=== PATIENT | female | born 1995 | race Caucasian/White ===

== ENCOUNTER → 2021-05-25 | Outpatient (REF) | LOC: M LAB 15:12 | PROVIDERS: ATTEND Nurse Practitioner Adult Health | DX: Z00.00 Encounter for general adult medical examination without abnormal findings (principal) ==

== ENCOUNTER → 2021-07-12 | Outpatient (REF) | LOC: M LABSMTC 10:20 | PROVIDERS: ATTEND Family Medicine | DX: Z20.822 Contact with and (suspected) exposure to COVID-19 (principal); Z11.52 Encounter for screening for COVID-19 ==

== ENCOUNTER → 2021-07-16 | Outpatient (REF) | LOC: M LABSMTC 10:15 | PROVIDERS: ATTEND Family Medicine | DX: Z20.822 Contact with and (suspected) exposure to COVID-19 (principal) ==

== ENCOUNTER 2021-07-30 10:50 | Emergency (ER) | payer BC ==
[~2021-07-30] VITALS: Ht 167.6 cm; Wt 95.1 kg
[2021-07-30] MEDS ORDERED: diazePAM 5MG TABLET PO ONE (13:25)
[2021-07-30] MEDS ORDERED: LIDOCAINE 5% (LIDODERM) PATCH TD ONE (13:25)
[2021-07-30] MEDS ORDERED: KETOROLAC 30 MG/ML 1ML VIAL IM ONE (13:25)
[2021-07-30] MEDS ORDERED: PRED20TA PO (15:27)
[2021-07-30] MEDS ORDERED: METH-1164 PO (15:27)
[2021-07-30] MEDS ORDERED: CYCLOBENZAPRINE 5MG TABLET PO ONE (15:35)
[2021-07-30 15:39] VITALS: BP 129/90
[2021-07-30] MEDS ORDERED: **NOTE PATIENT COMMENT** MISC XX SCH (21:00)
== END 2021-07-30 15:45 | disposition home or self-care (01) ==
LOC: M ED 10:50
DX: M43.06 Spondylolysis, lumbar region (principal); I73.00 Raynaud's syndrome without gangrene; F41.9 Anxiety disorder, unspecified; Z79.899 Other long term (current) drug therapy
CPT/HCPCS: 72131; 96372; 99283; J1885

== ENCOUNTER → 2021-10-22 | Outpatient (CLI) | payer BC ==
[~2021-10-22] MED LIST: METH-1164 PO; PRED20TA PO
== END ==
LOC: M SOG 08:14
PROVIDERS: ATTEND Orthopaedic Surgery
DX: M54.50 Low back pain, unspecified (principal); M54.2 Cervicalgia

== ENCOUNTER 2022-01-28 10:57 | Emergency (ER) | payer BC ==
[~2022-01-28] VITALS: Ht 167.6 cm; Wt 96.7 kg
[2022-01-28] MEDS ORDERED: CITA40TA6 (11:06)
[2022-01-28] MEDS ORDERED: ARIP1TAB4 (11:06)
[2022-01-28] MEDS ORDERED: AMPH1TAB2 (11:06)
[2022-01-28] MEDS ORDERED: CLON1TAB8 (11:06)
[2022-01-28] MEDS ORDERED: LORA2TAB14 (11:06)
[2022-01-28] MEDS ORDERED: LORazepam 2 MG/ML VIAL IV STA ×2 (12:00→14:49)
[2022-01-28 12:15] LABS: BASO % 0.4 % (0.0-1.0); EOS # 0.1 10^3/uL (0.0-0.5); EOS % 0.8 % (0.0-3.0); HEMATOCRIT 38.3 % (36.0-47.0); HEMOGLOBIN 13.1 g/dl (12.0-15.5); LYMPH # 2.2 10^3/uL (1.5-5.0); LYMPH % 21.1 % (24.0-44.0); MEAN CORPUSCULAR HEMOGLOBIN 30.8 pg (27.0-33.0); MEAN CORPUSCULAR HGB CONC 34.2 g/dl (32.0-36.5); MEAN CORPUSCULAR VOLUME 90.1 fl (80.0-96.0); MONO # 0.8 10^3/uL (0.0-0.8); MONO % 7.5 % (2.0-8.0); NEUTROPHILS # 7.4 10^3/uL (1.5-8.5); NEUTROPHILS % 69.9 % (36.0-66.0); PLATELET COUNT, AUTOMATED 275 10^3/uL (150-450); RED BLOOD COUNT 4.25 10^6/uL (4.00-5.40); WHITE BLOOD COUNT 10.6 10^3/uL (4.0-10.0)
[2022-01-28 12:42] VITALS: BP 165/89
[2022-01-28] MEDS ORDERED: ONDA4TAB6 PO (15:14)
== END 2022-01-28 16:16 | disposition home or self-care (01) ==
LOC: M ED 10:57
DX: F41.0 Panic disorder [episodic paroxysmal anxiety] (principal); R63.8 Other symptoms and signs concerning food and fluid intake
CPT/HCPCS: 80047; 85025; 96374; 96376; 99283; J2060

== ENCOUNTER → 2022-03-08 | Outpatient (REF) ==
[~2022-03-08] MED LIST changes: +AMPH1TAB2; +ARIP1TAB4; +CITA40TA6; +CLON1TAB8; +LORA2TAB14; +ONDA4TAB6 PO
== END ==
LOC: M EMP 08:35
PROVIDERS: ATTEND Family Medicine
DX: Z20.822 Contact with and (suspected) exposure to COVID-19 (principal)

== ENCOUNTER → 2022-03-08 | Outpatient (REF) | LOC: M EMP 08:26 | PROVIDERS: ATTEND Family Medicine | DX: Z20.822 Contact with and (suspected) exposure to COVID-19 (principal) ==

== ENCOUNTER → 2022-03-22 | Outpatient (REF) | payer BC | LOC: M SFHCWAGY 17:09 | PROVIDERS: ATTEND Nurse Practitioner Family | DX: Z12.4 Encounter for screening for malignant neoplasm of cervix (principal); R87.610 Atypical squamous cells of undetermined significance on cytologic smear of cervix (ASC-US) | CPT/HCPCS: 87624; G0123 ==

== ENCOUNTER → 2022-05-06 | Outpatient (CLI) | payer OTHER | LOC: M WHC 06:54 | PROVIDERS: ATTEND Nurse Practitioner Family | DX: R10.2 Pelvic and perineal pain (principal) ==

== ENCOUNTER → 2022-05-10 | Outpatient (REF) | payer OTHER ==
[2022-05-10 17:58] LABS: BASO % 0.4 % (0.0-1.0); EOS % 0.4 % (0.0-3.0); HEMATOCRIT 40.7 % (36.0-47.0); HEMOGLOBIN 13.5 g/dl (12.0-15.5); LYMPH # 1.8 10^3/uL (1.5-5.0); LYMPH % 17.5 % (24.0-44.0); MEAN CORPUSCULAR HEMOGLOBIN 30.4 pg (27.0-33.0); MEAN CORPUSCULAR HGB CONC 33.2 g/dl (32.0-36.5); MEAN CORPUSCULAR VOLUME 91.7 fl (80.0-96.0); MONO # 0.5 10^3/uL (0.0-0.8); MONO % 5.3 % (2.0-8.0); NEUTROPHILS # 7.6 10^3/uL (1.5-8.5); NEUTROPHILS % 76.1 % (36.0-66.0); PLATELET COUNT, AUTOMATED 331 10^3/uL (150-450); RED BLOOD COUNT 4.44 10^6/uL (4.00-5.40)
[2022-05-10 18:25] LABS: ERYTHROCYTE SEDIMENTATION RATE 35 mm/hr (0-20)
[2022-05-10 18:28] LABS: URIC ACID 6.4 MG/DL (3.1-7.8)
[2022-05-10 18:30] LABS: C REACTIVE PROTEIN QUANTITATIV < 0.40 MG/DL (<1.0)
[2022-05-10 18:31] LABS: RHEUMATOID FACTOR QUANT < 3.5 IU/ML (<14)
[2022-05-10 18:36] LABS: ALBUMIN 4.1 G/DL (3.2-5.2); ALKALINE PHOSPHATASE 85 U/L (46-116); ALT/SGPT 26 U/L (7.0-40); AST/SGOT 21 U/L (<34); BILIRUBIN,TOTAL 0.6 MG/DL (0.3-1.2); BLOOD UREA NITROGEN 7 MG/DL (9-23); CALCIUM LEVEL 9.6 MG/DL (8.5-10.1); CARBON DIOXIDE LEVEL 24 MMOL/L (20-31); CHLORIDE LEVEL 102 MMOL/L (98-107); CREATININE FOR GFR 0.62 MG/DL (0.55-1.30); GLOMERULAR FILTRATION RATE > 60.0 (>60); GLUCOSE, FASTING 83 MG/DL (60-100); POTASSIUM SERUM 4.1 MMOL/L (3.5-5.1); SODIUM LEVEL 135 MMOL/L (136-145); TOTAL PROTEIN 7.4 G/DL (5.7-8.2)
== END ==
LOC: M LAB REF 16:44
PROVIDERS: ATTEND Nurse Practitioner Family
DX: I73.00 Raynaud's syndrome without gangrene (principal)

== ENCOUNTER → 2022-11-01 | Outpatient (REF) | payer OTHER, BC ==
[2022-11-01 13:51] LABS: ALBUMIN 3.8 G/DL (3.2-5.2); ALKALINE PHOSPHATASE 68 U/L (46-116); ALT/SGPT 14 U/L (7.0-40); AST/SGOT < 8 U/L (<34); BILIRUBIN,TOTAL 0.5 MG/DL (0.3-1.2); BLOOD UREA NITROGEN 6 MG/DL (9-23); CALCIUM LEVEL 8.8 MG/DL (8.5-10.1); CARBON DIOXIDE LEVEL 24 MMOL/L (20-31); CHLORIDE LEVEL 106 MMOL/L (98-107); CHOLESTEROL LEVEL 172 MG/DL (<200); CHOLESTEROL RISK RATIO 3.99 (<5); GLOMERULAR FILTRATION RATE > 60.0 (>60); GLUCOSE, FASTING 77 MG/DL (60-100); HDL CHOLESTEROL 43.1 MG/DL (>40); LDL CHOLESTEROL 110.9 MG/DL (<100); NON-HDL-C 128.9 MG/DL; POTASSIUM SERUM 3.9 MMOL/L (3.5-5.1); SODIUM LEVEL 137 MMOL/L (136-145); TOTAL PROTEIN 7.3 G/DL (5.7-8.2); TRIGLYCERIDES LEVEL 90 MG/DL (<150)
== END ==
LOC: M LAB REF 11:43
PROVIDERS: ATTEND Nurse Practitioner Family
DX: Z13.228 Encounter for screening for other metabolic disorders (principal)